=== PATIENT | female | born 1975 | race Caucasian/White ===

== ENCOUNTER → 2017-02-23 | Outpatient (CLI) | payer OTHER ==
--- NOTE | 2017-02-26 11:10 | KCIC ---
DATE: 02/23/2017. EXAM: MAMMO MICAELA SCREENING BILATERAL. HISTORY: Routine mammographic screening. COMPARISON: This is the baseline study.. This study was interpreted with the benefit of Computerized Aided Detection (CAD). FINDINGS: The breast parenchyma shows scattered fibroglandular densities. Breast parenchyma level B.. A circumscribed nodules slightly superomedial to the left nipple is most likely a benign cyst or fibroadenoma. A dense focus superiorly on the right corresponds with parenchymal overlapping on tomography. There is no suspicious finding on the right. BI-RADS CATEGORY: 0 INCOMPLETE: NEEDS ADDITIONAL IMAGING EVALUATION AND/OR PRIOR MAMMOGRAMS FOR COMPARISON.. RECOMMENDED FOLLOW-UP: ADD ADDITIONAL IMAGING. Recommend ultrasound superomedially on the left to assess a nodule at baseline. PQRS compliance statement: Patient information was entered into a reminder system with a target due date (now) for the next mammogram. Mammography is a sensitive method for finding small breast cancers, but it does not detect them all and is not a substitute for careful clinical examination. A negative mammogram does not negate a clinically suspicious finding and should not result in delay in biopsying a clinically suspicious abnormality. "Our facility is accredited by the [employer] Mammography [employer]."
== END | disposition home or self-care (01) ==
LOC: KCIC MAMMO 15:21
DX: Z12.31 Encounter for screening mammogram for malignant neoplasm of breast (principal)
CPT/HCPCS: 77063; G0202; 77067

== ENCOUNTER → 2017-02-28 | Outpatient (CLI) | payer OTHER ==
--- NOTE | 2017-02-28 11:21 | RAD ---
EXAM: Left breast ultrasound. HISTORY: Nodule on baseline screening. Sonography is requested. COMPARISON: None. FINDINGS: Sonographic evaluation of the left breast was performed at the site of mammographic concern medially. This reveals an oval, hypoechoic nodule measuring 1.1 x 0.7 x 0.5 cm at the 10:00 position 2.5 cm from the nipple. No internal flow is detected, but thin septations are suspected consistent with a benign fibroadenoma. Images of the left axilla reveal a normal left axillary lymph node. There is no suspicious sonographic finding. IMPRESSION: 1. BI-RADS Category 3: Probably benign findings. 2. Recommend 6 month follow-up left sonography to confirm stability of what likely represents a benign fibroadenoma at the 10:00 position at baseline.
== END | disposition home or self-care (01) ==
LOC: KCIC US 09:38
DX: N63.20 Unspecified lump in the left breast, unspecified quadrant (principal)
CPT/HCPCS: 76641

== ENCOUNTER → 2017-08-30 | Outpatient (CLI) | payer OTHER | END | disposition home or self-care (01) | LOC: KCIC US 12:50 | DX: N63.20 Unspecified lump in the left breast, unspecified quadrant (principal) | CPT/HCPCS: 76641 ==

== ENCOUNTER → 2018-03-19 | Outpatient (CLI) | payer OTHER ==
--- NOTE | 2018-03-19 11:10 | KCIC ---
DATE: March 19, 2018. EXAM: MAMMO MICAELA DIAG BILAT HISTORY: Follow-up of left breast nodule anteriorly. COMPARISON: February 23, 2017. This study was interpreted with the benefit of Computerized Aided Detection (CAD). FINDINGS: Breast Density: SCATTERED The breast parenchyma shows scattered fibroglandular densities. Breast parenchyma level B.. Again seen is the nodule of the upper medial aspect of the left breast anteriorly which is stable. Bilateral breast nodularity is seen which has not changed significantly. No architectural distortion or clustering of pleomorphic microcalcifications are evident on either side. IMPRESSION: Stable anterior left breast nodule within the upper medial aspect of the left breast. Recommend 6 month follow-up diagnostic 3-D mammogram of the left breast followed by left breast sonography. Stable mammogram of the right breast. Recommend screening mammography in one year on the right side. BI-RADS CATEGORY: 3 PROBABLE BENIGN-SHORT TERM F/U RECOMMENDED FOLLOW-UP: 6M 6 MONTH FOLLOW-UP PQRS compliance statement: Patient information was entered into a reminder system with a target due date September 17, 2018 for the next mammogram. Mammography is a sensitive method for finding small breast cancers, but it does not detect them all and is not a substitute for careful clinical examination. A negative mammogram does not negate a clinically suspicious finding and should not result in delay in biopsying a clinically suspicious abnormality. "Our facility is accredited by the [employer] Mammography [employer]." The patient's breast density may affect the ability of mammography to detect breast cancer. There are 4 categories of breast density, A, B, C and D. Breast density A means that most of the breast tissue is replaced with adipose tissue and therefore is not dense. Breast density B means that the breast tissue is mildly dense and scattered. Breast density C means that the breast tissue is heterogeneously dense. Breast density D means that the breast tissue is very dense. Breast densities especially C and D may decrease the sensitivity of mammography to detect breast cancer. Therefore, the patient may benefit from 3-D breast mammography (3D breast tomography) as a part of their screening mammogram. Insurance may or may not pay for this additional imaging. The patient's breast density based on today's mammogram is category B.
== END | disposition home or self-care (01) ==
LOC: KCIC MAMMO 09:37
DX: N63.22 Unspecified lump in the left breast, upper inner quadrant (principal)
CPT/HCPCS: 77066; G0279; 77062

== ENCOUNTER → 2019-04-23 | Outpatient (CLI) | payer OTHER ==
--- NOTE | 2019-04-23 10:18 | KCIC ---
Bilateral digital diagnostic mammogram with tomosynthesis and left breast ultrasound Reason for examination: Follow-up of probably benign left inner breast lesion. Comparison is made to previous study dated left breast ultrasound August 30, 2017 and February 28, 2017. Mammograms March 19, 2018 and February 23, 2017. Routine CC and MLO digital views obtained. Interpretation was made with the benefit of CAD. Mammogram: The skin and nipples show no abnormalities. No abnormal lymph nodes are seen. The breast parenchyma is scattered fibroglandular elements. (Breast density: Category B.) There are no suspicious masses, suspicious calcifications or architectural distortions. Left upper inner breast anterior depth oval circumscribed subcentimeter low-density mass is stable. ULTRASOUND: Left breast 10:00 position 2 cm from nipple demonstrates a stable 1.0 x 0.7 cm parallel oval circumscribed hypoechoic nonshadowing complicated cyst or fibroadenoma, stable back to February 2017 considered benign given 2 years of stability. Impression: No suspicious abnormality. Stable small complicated cyst or fibroadenoma of the left upper inner breast back to February 2017, given its morphology and 2 years of stability this is considered benign. Return to annual screening mammography. BI-RADS Category 2: Benign. "Our facility is accredited by the [employer] Mammography [employer]." This patient's information has been entered into a reminder system for the patient to be notified with the results of her examination and a target date for the next mammogram. Electronically signed by: Joselo Dale MD (04/23/2019 10:15 AM) [id number]
== END | disposition home or self-care (01) ==
LOC: KCIC MAMMO 08:57
DX: R92.8 Other abnormal and inconclusive findings on diagnostic imaging of breast (principal)
CPT/HCPCS: 76641; 77066; G0279; 77062

== ENCOUNTER → 2020-05-05 | Outpatient (CLI) | payer OTHER ==
--- NOTE | 2020-05-05 16:32 | KCIC ---
EXAM: Bilateral digital screening mammogram with tomosynthesis. HISTORY: 44-year-old female presents for screening mammography. TECHNIQUE: Full-field digital craniocaudal and mediolateral oblique 2D and 3D tomosynthesis images of both breasts are obtained for evaluation. Computer aided detection was applied. COMPARISON: 04/23/2019 and 03/19/2018 BREAST PARENCHYMAL DENSITY: Level B - Scattered fibroglandular densities. FINDINGS: There is a cluster of calcifications within the anterior 4:00 position of the left breast w hich demonstrate indeterminate morphology. There are stable areas of nodularity and asymmetry within both breasts. There is no architectural distortion. IMPRESSION: BI-RADS Category 0: Incomplete. Additional imaging needed. RECOMMENDATION: Further evaluation with spot magnification views of clustered microcalcifications wit hin the anterior 4:00 position of the left breast is recommended to assess calcification morphology. If your mammogram demonstrates that you have dense breast tissue, which could hide abnormalities, and if you have other risk factors for breast cancer that have been identified, you might benefit from s upplemental screening tests that may be suggested by your ordering physician. Dense breast tissue, i n and of itself, is a relatively common condition. This information is not provided to cause undue c oncern, but rather to raise your awareness and to promote discussion with your physician regarding th e presence of other risk factors, in addition to dense breast tissue. A report of your mammography re sults will be sent to you and your physician. You should contact your physician if you have any ques tions or concerns regarding this report. Mammography is a sensitive method for finding small breast cancers, but it does not detect them all a nd is not a substitute for careful clinical examination. A negative mammogram does not negate a clin ically suspicious finding and should not result in delay in biopsying a clinically suspicious abnorma lity. PQRS compliance statement - Patient information was entered into a reminder system with a target due date for the next mammogram. "Our facility is accredited by the [employer] Mammography [employer]." Electronically signed by: Mercy Vasquez MD (05/05/2020 4:29 PM) [id number]
== END ==
LOC: KCIC MAMMO 15:37
DX: Z12.31 Encounter for screening mammogram for malignant neoplasm of breast (principal)
CPT/HCPCS: 77063; 77067

== ENCOUNTER → 2020-05-17 | Outpatient (CLI) | payer OTHER ==
--- NOTE | 2020-05-17 16:20 | RAD ---
Examination: Left digital diagnostic mammogram INDICATION: 44-year-old woman recalled from screening for left breast calcifications. COMPARISON: 04/23/2019 and 03/19/2018 bilateral mammograms, left breast ultrasound of 04/23/2019 TECHNIQUE: Magnification CC and ML views of the left breast were obtained in the area of mammographic interest. FINDINGS: Scattered fibroglandular densities. The cluster of calcifications in the anterior lateral left breast, reported at the 4:00 position on t he screening examination changed configuration between the CC projection (with rounded morphology) an d the lateral view (with crescenteric morphology). There is some variability in size of the calcifica tions, especially notable on the lateral view. IMPRESSION: Probably benign cluster of calcifications in the anterior superior left breast. BI-RADS Category 3 Probably benign findings Recommend 6 month follow-up left digital diagnostic mammogram to include magnification views in the C C and lateral projections. Patient entered into a reminder system with targeted due date for next mammogram. Electronically signed by: Derrell Méndez MD (05/17/2020 4:18 PM) [id number]
== END ==
LOC: MAMMO 11:00
DX: R92.8 Other abnormal and inconclusive findings on diagnostic imaging of breast (principal)
CPT/HCPCS: 77065

== ENCOUNTER → 2020-12-07 | Outpatient (CLI) | payer OTHER ==
--- NOTE | 2020-12-07 09:24 | KCIC ---
Examination: Left digital diagnostic mammogram INDICATION: Follow-up of probably benign left breast calcifications. COMPARISON: Mammogram from 05/17/2020, 04/15/2020, and 04/23/2019. TECHNIQUE: 2-D and 3-D CC and MLO images were obtained. Spot magnification CC and ML views were [place] in the area of mammographic interest. FINDINGS: Scattered fibroglandular densities. The cluster of calcifications in the anterior lateral left breast, at the 4:00 position has not vargas ed significantly. These are slightly indistinct on the the images and mediolateral images. The group measures about 1 cm in maximum dimension and may represent milk of calcium within microcysts. No asso ciated mass or architectural distortion seen. There is unchanged benign oval circumscribed mass 9:00 region of the left breast at anterior depth. No suspicious breast mass, architectural distortion, or new groups of calcifications are seen. IMPRESSION: Probably benign cluster of calcifications in the 4:00 position of the left breast. BI-RADS Category 3 Probably benign findings Recommend 6 month follow-up bilateral digital diagnostic mammogram to include left magnification view s in the CC and lateral projections. Patient entered into a reminder system with targeted due date for next mammogram. Electronically signed by: Leigh Ann Lam MD (12/07/2020 9:22 AM) [id number]
== END ==
LOC: KCIC MAMMO 08:18
PROVIDERS: ATTEND Family Medicine
DX: R92.8 Other abnormal and inconclusive findings on diagnostic imaging of breast (principal)
CPT/HCPCS: 77065; G0279; 77061

== ENCOUNTER → 2021-06-10 | Outpatient (CLI) | payer OTHER ==
--- NOTE | 2021-06-10 16:06 | RAD ---
DIAGNOSTIC BILATERAL BREAST MAMMOGRAM TECHNIQUE: 2-D and 3-D digital mammography with bilateral routine CC and MLO views. Additional spot m agnification views of the left breast in the CC and ML projections. INDICATION: Short interval follow up probably benign left breast calcifications. Routine screening in [facility] for right breast. COMPARISON: 12/07/2020, 05/17/2020, 05/05/2020, 04/23/2019, 03/19/2018. FINDINGS: Breast Density: There are scattered areas of fibroglandular density. Stable circumscribed asymmetry anterior inner left breast. Magnification views demonstrate stable jazmin earance of anterior lateral left breast calcifications somewhat rounded in morphology. No new left br east calcifications. No suspicious right breast calcifications, masses or architectural distortion. IMPRESSION: 1. Stable appearance of probably benign left breast calcifications. No evidence of malignancy in the right breast. ASSESSMENT: BI-RADS 3: Probably Benign. RECOMMENDATION: Short interval follow-up six-month left breast diagnostic mammogram with spot magnifi cation views. The facility will notify the patient of the results via mail. Patient information will be entered int o the mammography reminder system with a target recall date for the next mammogram. A reminder letter will be generated by the facility. Electronically signed by: Marcial Huertas MD (06/10/2021 4:03 PM) [id number]
== END ==
LOC: MAMMO 14:03
PROVIDERS: ATTEND Family Medicine
DX: R92.8 Other abnormal and inconclusive findings on diagnostic imaging of breast (principal)
CPT/HCPCS: 77066; G0279; 77062